=== PATIENT | female | born 1945 | race Hispanic/Latino ===

== ENCOUNTER 2016-11-23 10:55 | Emergency (ER) | payer MEDICARE ==
[2016-11-23 11:21] VITALS: BP 141/86; PULSE 93; RESP 14; TEMP 98.6; O2SAT 96
--- NOTE | 2016-11-23 11:32 | ED PDOC ---
Upper Extremity Pain/Injury Time Seen by Provider: 11/23/16 11:03 Chief Complaint (Nursing): Upper Extremity Problem/Injury Chief Complaint (Provider): Right wrist weakness History Per: Patient History/Exam Limitations: no limitations Onset/Duration Of Symptoms: Hrs (Since this morning) Current Symptoms Are (Timing): Still Present Additional Complaint(s): Laya is a 71 y/o right-handed female who presents to the ED complaining of right wrist weakness since waking up this AM. States she fell asleep in a chair last night, and went to bed normally. Denies any other weakness, headache, or paresthesias. Patient has history of hypertension and hypothyroidism. PMD: Tang Linares Past Medical History Reviewed: Historical Data, Nursing Documentation, Vital Signs Vital Signs: Last Vital Signs Temp 98.6 F 11/23/16 11:16 Pulse 93 H 11/23/16 11:16 Resp 14 11/23/16 11:16 BP 141/86 11/23/16 11:16 Pulse Ox 96 11/23/16 11:16 - Medical History PMH: HTN, Hypothyroidism, Pneumonia (2013) Denies: Chronic Kidney Disease - Surgical History Surgical History: Hernia Repair, - Family History Family History: States: Unknown Family Hx - Social History Current smoker - smoking cessation education provided: Yes (Heavy) Alcohol: None Drugs: Denies - Home Medications Home Medications: Ambulatory Orders Medication Instructions Recorded Amlodipine Besylate [Norvasc] 1 tab PO DAILY 05/16/15 Enalapril Maleate 10 mg PO DAILY 05/16/15 Levothyroxine [Synthroid] 1 tab PO DAILY 05/16/15 Aspirin 325 mg PO DAILY #0 tab 05/17/15 - Allergies Allergies/Adverse Reactions: Allergies Allergy/AdvReac Type Severity Reaction Status Date / Time shrimp Allergy SWELLING Verified 05/17/15 03:15 Review of Systems ROS Statement: Except As Marked, All Systems Reviewed And Found Negative Constitutional: Negative for: Weakness (generalized) Neurological: Positive for: Weakness (Right wrist). Negative for: Headache, Other (Paresthesias) Physical Exam - Reviewed Nursing Documentation Reviewed: Yes Vital Signs Reviewed: Yes - Physical Exam Appears: Positive for: Non-toxic, No Acute Distress Head Exam: Positive for: ATRAUMATIC, NORMAL INSPECTION, NORMOCEPHALIC Skin: Positive for: Normal Color, Warm, Dry Eye Exam: Positive for: EOMI, Normal appearance, PERRL Neck: Positive for: Normal, Painless ROM, Supple Cardiovascular/Chest: Positive for: Regular Rate, Rhythm. Negative for: Murmur Respiratory: Positive for: Normal Breath Sounds. Negative for: Respiratory Distress Pulses-Radial (L): 2+ Pulses-Radial (R): 2+ Gastrointestinal/Abdominal: Positive for: Normal Exam, Soft. Negative for: Tenderness Back: Positive for: Normal Inspection. Negative for: Vertebral Tenderness Extremity: Positive for: Normal ROM, Capillary Refill (< 2 sec), Other (Right wrist droop, sensation intact. No pronator drift.). Negative for: Tenderness, Deformity Neurologic/Psych: Positive for: Alert, plant custodian II-XII, Oriented, Cerebellar Tests ( WNL), Gait (WNL). Negative for: Aphasia, Facial Droop - ECG O2 Sat by Pulse Oximetry: 96 (RA) Pulse Ox Interpretation: Normal Medical Decision Making Medical Decision Making: Time: 11:05 Initial Impression: Radial Nerve Palsy Initial Plan: --Paged neurologist, Dr. Ireland, to discuss case Time: 11:25 --Discussed case with Dr. Ireland, who recommends she use wrist splint and be discharged home. If no improvement in 2 weeks, patient will need an EMG Time: 11:40 Clinical Impression: Radial Nerve Palsy Upon provider evaluation patient is medically stable, and requires no further treatment in the ED at this time. Patient will be discharged home with wrist splint. Counseling was provided and all questions were answered regarding diagnosis and need for follow up with PMD. There is agreement to discharge plan. Return if symptoms persist or worsen. Scribe Attestation: Documented by Camille Sanders, acting as a scribe for Mindy Armendariz MD Provider Scribe Attestation: All medical record entries made by the Scribe were at my direction and personally dictated by me. I have reviewed the chart and agree that the record accurately reflects my personal performance of the history, physical exam, medical decision making, and the department course for this patient. I have also personally directed, reviewed, and agree with the discharge instructions and disposition. Disposition - Clinical Impression Clinical Impression: Radial nerve palsy - Patient ED Disposition Is Patient to be Admitted: No Doctor Will See Patient In The: Office Counseled Patient/Family Regarding: Diagnosis, Need For Followup - Disposition Referrals: Christiano Rene MD [Staff Provider] - Disposition: Routine/Home Disposition Time: 11:40 Condition: STABLE Additional Instructions: If no improvement in 2 weeks, patient will need an EMG Instructions: Radial Nerve Palsy (ED) Forms: [facility] (Filipino)
== END 2016-11-23 11:41 | disposition home or self-care (01) ==
LOC: H.ER 10:55
DX: G56.30 Lesion of radial nerve, unspecified upper limb (principal)